=== PATIENT | male | born 1960 | race American Indian/Alaskan Native ===

== ENCOUNTER 2016-10-20 20:09 | Emergency (ER) | payer MEDICARE, OTHER ==
[2016-10-20] MEDS ORDERED: Ketorolac 30 MG/ML SDV IVPUSH ONE (20:42)
[2016-10-20] MEDS ORDERED: diphenhydrAMINE 50 MG/ML SDV IVPUSH ONE (20:42)
[2016-10-20] MEDS ORDERED: Sodium Chloride 0.9% 1,000 ML IV ONE (20:42)
[2016-10-20] MEDS ORDERED: Ondansetron 4 MG/2 ML SDV IV ONE (20:43)
--- NOTE | 2016-10-20 20:43 | EDM.PDOC ---
ED HPI GENERAL MEDICAL PROBLEM - General Chief Complaint: Fever Stated Complaint: PAIN ALL OVER THE BODY [id number] Time Seen by Provider: 10/20/16 20:25 Source of Information: Reports: Patient History Limitations: Reports: No Limitations - History of Present Illness INITIAL COMMENTS - FREE TEXT/NARRATIVE: c/o cold symptoms since weekend and thought getting better until today, increased fatigue, temp at home 102, occasional cough productive green phlegm. Generalized body aches today. Last ibuprofen 1600 today Quality: Reports: Ache Severity: Mild Generalized Pain Score (Numeric/FACES): 8 - Related Data Allergies Allergy/AdvReac Type Severity Reaction Status Date / Time codeine AdvReac Mild Nausea Verified 10/20/16 22:04 propoxyphene AdvReac Mild Nausea Verified 10/20/16 22:04 Home Meds: Home Meds Lisinopril [Lisinopril] 5 mg PO DAILY 06/17/16 [History] Past Medical History Cardiovascular History: Reports: Hypertension Respiratory History: Reports: Other (See Below) Other Respiratory History: HX OF PNEUMONIA Gastrointestinal History: Reports: Other (See Below) Other Gastrointestinal History: HX OF ELECTROLYTE IMBALANCE Musculoskeletal History: Reports: Fracture Neurological History: Reports: Other (See Below) Other Neuro History: CHRONIC PAIN SYNDROME Psychiatric History: Reports: Addiction, Other (See Below) Other Psychiatric History: HX OF ALCOHOL HABITUATION. HX OF TOBACCO HABITUATION Hematologic History: Reports: Anemia Dermatologic History: Reports: Other (See Below) Other Dermatologic History: ROSACEA, ACNE - Infectious Disease History Infectious Disease History: Reports: None Other Infectious Disease History: DOES NOT RECALL - Past Surgical History Musculoskeletal Surgical History: Reports: Other (See Below) Social & Family History - Family History Family Medical History: Noncontributory HEENT: Reports: Hearing Impairment Cardiac: Reports: CAD, Heart Failure, High Cholesterol, Hypertension Respiratory: Reports: COPD GI: Reports: Cholelithiasis Neurological: Reports: CVA Psychiatric: Reports: Depression Endocrine/Metabolic: Reports: Diabetes, type II - Tobacco Use Smoking Status *Q: Current Every Day Smoker Years of Tobacco use: 40 Packs/Tins Daily: 1 Used Tobacco, but Quit: Yes Second Hand Smoke Exposure: No - Caffeine Use Caffeine Use: Reports: Coffee, Soda - Alcohol Use Days Per Week of Alcohol Use: 7 Number of Drinks Per Day: 30 Total Drinks Per Week: 210 - Recreational Drug Use Recreational Drug Use: No Other Recreational Drug Type: UNKNOWN IF USES REC. DRUGS - Living Situation & Occupation Living situation: Reports: , with Family Occupation: Unemployed ED ROS GENERAL - Review of Systems Review Of Systems: See Below Constitutional: Reports: Fever, Malaise, Fatigue HEENT: Reports: Sinus Problem. Denies: Throat Pain Respiratory: Reports: Cough, Sputum. Denies: Shortness of Breath Cardiovascular: Reports: No Symptoms GI/Abdominal: Reports: No Symptoms Musculoskeletal: Reports: Other (genralized body aches) Skin: Reports: No Symptoms Neurological: Reports: Headache (worse turning head) ED EXAM, GENERAL - Physical Exam Exam: See Below Exam Limited By: No Limitations General Appearance: Alert, Mild Distress Eye Exam: Bilateral Eye: EOMI Ears: Normal External Exam, Normal TMs Nose: Normal Inspection Throat/Mouth: Normal Inspection, Normal Oropharynx Head: Atraumatic, Normocephalic, Sinus Tenderness (ethmoid) Neck: Normal Inspection, Full Range of Motion, Tender Lateral. No: Limited Range of Motion, Lymphadenopathy (L), Lymphadenopathy (R), Tender Midline Respiratory/Chest: No Respiratory Distress, Lungs Clear Cardiovascular: Normal Peripheral Pulses, Regular Rate, Rhythm GI/Abdominal: Normal Bowel Sounds, Soft, Non-Tender Back Exam: Normal Inspection Extremities: Normal Inspection, Normal Range of Motion Neurological: Alert, Oriented, Normal Cognition Psychiatric: Normal Affect, Normal Mood Skin Exam: Warm, Dry, Intact, Normal Color, No Rash Course - Vital Signs Last Recorded V/S: Last Vital Signs Temp 97.6 F 10/20/16 22:36 Pulse 77 10/20/16 22:36 Resp 18 10/20/16 22:36 BP 110/60 10/20/16 22:36 Pulse Ox 98 10/20/16 22:36 - Orders/Labs/Meds Orders: Active Orders 24 hr Category Date Time Status EKG 12 Lead [EKG Documentation Completion] [RC] URGENT Care 10/20/16 20:40 Active CULTURE BLOOD [BC] Stat Lab 10/20/16 20:24 Received CULTURE BLOOD [BC] Stat Lab 10/20/16 20:28 Received Blood Culture x2 Reflex Set [OM.PC] Stat Oth 10/20/16 21:01 Ordered Labs: Laboratory Tests 10/20/16 10/20/16 10/20/16 Range/Units 20:28 20:28 20:28 WBC 5.7 (5.0-10.0) 10^3/uL RBC 5.60 (4.6-6.2) 10^6/uL Hgb 16.6 (14.0-18.0) g/dL Hct 47.5 (40.0-54.0) % MCV 84.8 (80-100) fL MCH 29.6 (27.0-34.0) pg MCHC 34.9 (33.0-35.0) g/dL Plt Count 143 L (150-450) 10^3/uL Neut % (Auto) 84.3 H (42.2-75.2) % Lymph % (Auto) 10.5 L (20.5-50.1) % [place] % (Auto) 3.0 (2-8) % Eos % (Auto) 1.9 (1.0-3.0) % Baso % (Auto) 0.3 (0.0-1.0) % Sodium 134 L (135-145) mmol/L Potassium 4.3 (3.6-5.0) mmol/L Chloride 101 (101-111) mmol/L Carbon Dioxide 24.0 (21.0-31.0) mmol/L Anion Gap 13.3 BUN 11 (7-18) mg/dL Creatinine 0.8 (0.6-1.3) mg/dL Est Cr Clr Drug Dosing 111.82 mL/min Estimated GFR (MDRD) > 60 BUN/Creatinine Ratio 13.75 Glucose 118 H (74-105) mg/dL Lactic Acid 1.2 (0.5-2.2) mmol/L Calcium 8.8 (8.4-10.2) mg/dl Total Bilirubin 0.6 (0.2-1.0) mg/dL AST 26 (10-42) IU/L ALT 15 (10-60) IU/L Alkaline Phosphatase 93 (42-121) IU/L Troponin I < 0.02 (0.00-0.02) ng/ml Total Protein 7.5 (6.7-8.2) g/dl Albumin 4.1 (3.2-5.5) g/dl Globulin 3.4 Albumin/Globulin Ratio 1.21 Amylase 36 (28-100) U/L Lipase 13 L (22-51) U/L Meds: Medications Discontinued Medications Generic Name Dose Route Start Last Admin Trade Name Andra PRN Reason Stop Dose Admin Acetaminophen 650 mg 10/20/16 21:28 10/20/16 21:47 Tylenol PO 10/20/16 21:29 650 mg NOW ONE Administration Diphenhydramine HCl 25 mg 10/20/16 20:42 10/20/16 21:17 Benadryl IVPUSH 10/20/16 20:43 25 mg ONETIME ONE Administration Sodium Chloride 1,000 mls @ 999 mls/hr 10/20/16 20:42 10/20/16 21:00 Normal Saline IV 10/20/16 21:42 999 mls/hr .BOLUS ONE Administration Ketorolac Tromethamine 30 mg 10/20/16 20:42 10/20/16 21:22 Toradol IVPUSH 10/20/16 20:43 30 mg ONETIME ONE Administration Ondansetron HCl 4 mg 10/20/16 20:43 10/20/16 21:19 Zofran IV 10/20/16 20:44 4 mg ONETIME ONE Administration - Radiology Interpretation Free Text/Narrative:: CXR negative Departure - Departure Time of Disposition: 22:17 Disposition: Home, Self-Care 01 Condition: good Clinical Impression: Tension headache URI (upper respiratory infection) Qualifiers: URI type: unspecified viral URI Qualified Code(s): J06.9 - Acute upper respiratory infection, unspecified - Discharge Information Referrals: Reed Garcia [Primary Care Provider] - Forms: ED Department Discharge Additional Instructions: rest alternate tylenol and ibuprofen for discomfort robitussin or mucciex for congestion follow up as needed - My Orders Last 24 Hours: My Active Orders 10/20/16 20:24 CULTURE BLOOD [BC] Stat 10/20/16 20:28 CULTURE BLOOD [BC] Stat 10/20/16 20:40 EKG 12 Lead [EKG Documentation Completion] [RC] URGENT 10/20/16 21:01 Blood Culture x2 Reflex Set [OM.PC] Stat - Assessment/Plan Last 24 Hours: My Active Orders 10/20/16 20:24 CULTURE BLOOD [BC] Stat 10/20/16 20:28 CULTURE BLOOD [BC] Stat 10/20/16 20:40 EKG 12 Lead [EKG Documentation Completion] [RC] URGENT 10/20/16 21:01 Blood Culture x2 Reflex Set [OM.PC] Stat
[2016-10-20 21:24] LABS: CHLORIDE,CL 101 mmol/L (101-111); SODIUM,NA 134 mmol/L (135-145)
[2016-10-20] MEDS ORDERED: Acetaminophen 325 MG Tab PO ONE (21:28)
[2016-10-21 02:05] VITALS: BP 110/60
--- NOTE | 2016-10-25 11:00 | EKG ---
10/20/2016- SID CASTRO - EKG per my reading, shows sinus rhythm at a rate of [address] changes. [facility] /[id number]
== END 2016-10-20 22:51 | disposition home or self-care (01) ==
LOC: DL.ED 20:09
DX: J06.9 Acute upper respiratory infection, unspecified (principal); G44.209 Tension-type headache, unspecified, not intractable; I10 Essential (primary) hypertension; D64.9 Anemia, unspecified; F17.210 Nicotine dependence, cigarettes, uncomplicated; Z88.5 Allergy status to narcotic agent; Z88.8 Allergy status to other drugs, medicaments and biological substances
CPT/HCPCS: 36415; 71020; 80053; 82150; 83605; 83690; 84484; 85025; 87040; 87804; 93005; 99284; A9270; J1200; J1885; J2405; J7030; 93010; 96361; 96374; 96375

== ENCOUNTER 2017-01-30 21:18 | Emergency (ER) | payer OTHER ==
[2017-01-30 22:17] LABS: CHLORIDE,CL 101 mmol/L (101-111); SODIUM,NA 137 mmol/L (135-145)
--- NOTE | 2017-01-30 22:54 | EDM.PDOC ---
ED HPI GENERAL MEDICAL PROBLEM - General Chief Complaint: Respiratory Problem Stated Complaint: RIGHT SIDE LUNGS BOTHERING Time Seen by Provider: 01/30/17 21:30 Source of Information: Reports: Patient History Limitations: Reports: No Limitations - History of Present Illness INITIAL COMMENTS - FREE TEXT/NARRATIVE: c/o right mid lateral chest pain, worse with movement, radiates through to back. Notices wihen rolling over or getting out of chair. Worried if it is pneumonia, similar sx previously and recent cold sx 2 weeks ago. No nausea or sweating occasional dry cough. Right Upper Anterior Chest Pain Score (Numeric/FACES): 7 - Related Data Allergies Allergy/AdvReac Type Severity Reaction Status Date / Time codeine AdvReac Mild Nausea Verified 01/30/17 21:37 propoxyphene AdvReac Mild Nausea Verified 01/30/17 21:37 Home Meds: Home Meds Lisinopril [Lisinopril] 5 mg PO DAILY 06/17/16 [History] Past Medical History HEENT History: Reports: None Cardiovascular History: Reports: Hypertension Respiratory History: Reports: Other (See Below) Other Respiratory History: HX OF PNEUMONIA Gastrointestinal History: Reports: Other (See Below) Other Gastrointestinal History: HX OF ELECTROLYTE IMBALANCE Musculoskeletal History: Reports: Fracture Other Musculoskeletal History: bilateral elbows, bilateral ankles, Neurological History: Reports: Other (See Below) Other Neuro History: CHRONIC PAIN SYNDROME Psychiatric History: Reports: Addiction, Other (See Below) Other Psychiatric History: HX OF ALCOHOL HABITUATION. HX OF TOBACCO HABITUATION Endocrine/Metabolic History: Reports: None Hematologic History: Reports: Anemia Immunologic History: Reports: None Oncologic (Cancer) History: Reports: None Dermatologic History: Reports: Other (See Below) Other Dermatologic History: ROSACEA, ACNE - Infectious Disease History Infectious Disease History: Reports: None Other Infectious Disease History: DOES NOT RECALL - Past Surgical History Musculoskeletal Surgical History: Reports: Other (See Below) Social & Family History - Family History Family Medical History: Noncontributory HEENT: Reports: Hearing Impairment Cardiac: Reports: CAD, Heart Failure, High Cholesterol, Hypertension Respiratory: Reports: COPD GI: Reports: Cholelithiasis Neurological: Reports: CVA Psychiatric: Reports: Depression Endocrine/Metabolic: Reports: Diabetes, type II - Tobacco Use Smoking Status *Q: Current Every Day Smoker Years of Tobacco use: 40 Packs/Tins Daily: 10 Used Tobacco, but Quit: Yes Second Hand Smoke Exposure: No - Caffeine Use Caffeine Use: Reports: Coffee, Soda - Alcohol Use Days Per Week of Alcohol Use: 7 Number of Drinks Per Day: 30 Total Drinks Per Week: 210 - Recreational Drug Use Recreational Drug Use: No Other Recreational Drug Type: UNKNOWN IF USES REC. DRUGS - Living Situation & Occupation Living situation: Reports: , with Family Occupation: Unemployed ED ROS GENERAL - Review of Systems Review Of Systems: See Below Constitutional: Reports: No Symptoms HEENT: Reports: No Symptoms Respiratory: Reports: Pleuritic Chest Pain, Cough. Denies: Shortness of Breath , Wheezing, Sputum, Hemoptysis Cardiovascular: Reports: No Symptoms Endocrine: Reports: No Symptoms GI/Abdominal: Reports: No Symptoms : Reports: No Symptoms Musculoskeletal: Reports: No Symptoms Skin: Reports: No Symptoms Neurological: Reports: No Symptoms ED EXAM, GENERAL - Physical Exam Exam: See Below Exam Limited By: No Limitations General Appearance: Alert, No Apparent Distress Eye Exam: Bilateral Eye: EOMI Ears: Normal External Exam, Normal TMs Nose: Normal Inspection. No: Nasal Drainage Throat/Mouth: Normal Inspection, Normal Lips, Normal Oropharynx, No Airway Compromise Head: Atraumatic, Normocephalic Neck: Normal Inspection, Full Range of Motion. No: Lymphadenopathy (L), Lymphadenopathy (R) Respiratory/Chest: No Respiratory Distress, Lungs Clear, Decreased Breath Sounds (bilateral bases), Other (unable to reproduce pain with palpation. Notes pain in lateral chest with right arm movment) Cardiovascular: Regular Rate, Rhythm, No Edema GI/Abdominal: Normal Bowel Sounds, Soft Back Exam: Normal Inspection, Full Range of Motion Extremities: Normal Inspection Neurological: Alert, Oriented Psychiatric: Normal Mood Skin Exam: Warm, Dry, Intact Course - Vital Signs Last Recorded V/S: Last Vital Signs Temp 96.5 F 01/30/17 23:01 Pulse 70 01/30/17 23:01 Resp 17 01/30/17 23:01 BP 120/85 01/30/17 23:01 Pulse Ox 100 01/30/17 23:01 - Orders/Labs/Meds Orders: Active Orders 24 hr Category Date Time Status EKG Documentation Completion [RC] URGENT Care 01/30/17 21:39 Active Labs: Laboratory Tests 01/30/17 01/30/17 01/30/17 Range/Units 21:50 21:50 21:50 WBC 11.1 H (5.0-10.0) 10^3/uL RBC 5.32 (4.6-6.2) 10^6/uL Hgb 15.8 (14.0-18.0) g/dL Hct 46.5 (40.0-54.0) % MCV 87.4 (80-100) fL MCH 29.7 (27.0-34.0) pg MCHC 34.0 (33.0-35.0) g/dL Plt Count 268 (150-450) 10^3/uL Neut % (Auto) 56.0 (42.2-75.2) % Lymph % (Auto) 32.9 (20.5-50.1) % [place] % (Auto) 6.5 (2-8) % Eos % (Auto) 3.9 H (1.0-3.0) % Baso % (Auto) 0.7 (0.0-1.0) % D-Dimer, Quantitative (0-400) ng/mL Sodium 137 (135-145) mmol/L Potassium 4.2 (3.6-5.0) mmol/L Chloride 101 (101-111) mmol/L Carbon Dioxide 26.0 (21.0-31.0) mmol/L Anion Gap 14.2 BUN 12 (7-18) mg/dL Creatinine 1.0 (0.6-1.3) mg/dL Est Cr Clr Drug Dosing 89.46 mL/min Estimated GFR (MDRD) > 60 BUN/Creatinine Ratio 12.00 Glucose 162 H (74-105) mg/dL Lactic Acid 1.6 (0.5-2.2) mmol/L Calcium 9.4 (8.4-10.2) mg/dl Total Bilirubin 0.6 (0.2-1.0) mg/dL AST 15 (10-42) IU/L ALT 11 (10-60) IU/L Alkaline Phosphatase 92 (42-121) IU/L Troponin I < 0.02 (0.00-0.02) ng/ml Total Protein 7.9 (6.7-8.2) g/dl Albumin 4.2 (3.2-5.5) g/dl Globulin 3.7 Albumin/Globulin Ratio 1.14 01/30/17 Range/Units 21:50 WBC (5.0-10.0) 10^3/uL RBC (4.6-6.2) 10^6/uL Hgb (14.0-18.0) g/dL Hct (40.0-54.0) % MCV (80-100) fL MCH (27.0-34.0) pg MCHC (33.0-35.0) g/dL Plt Count (150-450) 10^3/uL Neut % (Auto) (42.2-75.2) % Lymph % (Auto) (20.5-50.1) % [place] % (Auto) (2-8) % Eos % (Auto) (1.0-3.0) % Baso % (Auto) (0.0-1.0) % D-Dimer, Quantitative < 100 (0-400) ng/mL Sodium (135-145) mmol/L Potassium (3.6-5.0) mmol/L Chloride (101-111) mmol/L Carbon Dioxide (21.0-31.0) mmol/L Anion Gap BUN (7-18) mg/dL Creatinine (0.6-1.3) mg/dL Est Cr Clr Drug Dosing mL/min Estimated GFR (MDRD) BUN/Creatinine Ratio Glucose (74-105) mg/dL Lactic Acid (0.5-2.2) mmol/L Calcium (8.4-10.2) mg/dl Total Bilirubin (0.2-1.0) mg/dL AST (10-42) IU/L ALT (10-60) IU/L Alkaline Phosphatase (42-121) IU/L Troponin I (0.00-0.02) ng/ml Total Protein (6.7-8.2) g/dl Albumin (3.2-5.5) g/dl Globulin Albumin/Globulin Ratio Departure - Departure Time of Disposition: 22:51 Disposition: Home, Self-Care 01 Condition: Good Clinical Impression: Chest pain, non-cardiac, Costochondritis - Discharge Information Forms: ED Department Discharge Additional Instructions: tylenol every 4 hours as needed for discomfort warm pack to area 2-3 times dailyt for 15 minutes follow up if symptoms worsen sweating, breathing difficulty or - My Orders Last 24 Hours: My Active Orders 01/30/17 21:39 EKG Documentation Completion [RC] URGENT - Assessment/Plan Last 24 Hours: My Active Orders 01/30/17 21:39 EKG Documentation Completion [RC] URGENT
[2017-01-30 23:08] VITALS: BP 120/85
--- NOTE | 2017-01-31 20:23 | EKG ---
01/30/2017 - SID CASTRO - This 12-lead EKG shows a normal sinus rhythm with a ventricular rate of 70. Normal axis and intervals. No acute ST-segment or T-wave changes. [facility] /[id number]
== END 2017-01-30 23:01 | disposition home or self-care (01) ==
LOC: DL.ED 21:18
DX: M94.0 Chondrocostal junction syndrome [Tietze] (principal); I10 Essential (primary) hypertension; F17.210 Nicotine dependence, cigarettes, uncomplicated; Z87.01 Personal history of pneumonia (recurrent); Z86.2 Personal history of diseases of the blood and blood-forming organs and certain disorders involving the immune mechanism; Z79.899 Other long term (current) drug therapy; Z88.5 Allergy status to narcotic agent; Z88.8 Allergy status to other drugs, medicaments and biological substances
CPT/HCPCS: 36415; 71020; 80053; 83605; 84484; 85025; 85379; 93005; 93010; 99283

== ENCOUNTER 2017-02-18 22:58 | Emergency (ER) | payer OTHER ==
[2017-02-18 23:19] VITALS: BP 133/76
[2017-02-18] MEDS ORDERED: Sodium Chloride 0.9% 1,000 ML IV ONE (23:28)
--- NOTE | 2017-02-18 23:36 | EDM.PDOC ---
ED HPI GENERAL MEDICAL PROBLEM - General Chief Complaint: Respiratory Problem Stated Complaint: LUNGS BOTHERING [id number] Time Seen by Provider: 02/18/17 23:31 Source of Information: Reports: Patient History Limitations: Reports: No Limitations - History of Present Illness INITIAL COMMENTS - FREE TEXT/NARRATIVE: c/o constant burning sensation in right lung past month been progressively getting worse. was here last week for same. ER records show negative trop-d dimer-cxr. went to [facility] given pred but still same and starting to feel worse and now his right arm aches. does smoke. - Related Data Allergies Allergy/AdvReac Type Severity Reaction Status Date / Time codeine AdvReac Mild Nausea Verified 02/18/17 23:20 propoxyphene AdvReac Mild Nausea Verified 02/18/17 23:20 Home Meds: Home Meds Lisinopril [Lisinopril] 5 mg PO DAILY 06/17/16 [History] Celecoxib [CeleBREX] 2 tab PO DAILY 02/18/17 [History] Gabapentin [Neurontin] 1 tab PO BID 02/18/17 [History] Omeprazole 1 cap PO DAILY 02/18/17 [History] Pregabalin [Lyrica] 1 cap PO BEDTIME 02/18/17 [History] Pregabalin [Lyrica] 1 cap PO DAILY 02/18/17 [History] Past Medical History HEENT History: Reports: None Cardiovascular History: Reports: Hypertension Respiratory History: Reports: Other (See Below) Other Respiratory History: HX OF PNEUMONIA Gastrointestinal History: Reports: Other (See Below) Other Gastrointestinal History: HX OF ELECTROLYTE IMBALANCE Musculoskeletal History: Reports: Fracture Other Musculoskeletal History: bilateral elbows, bilateral ankles, Neurological History: Reports: Other (See Below) Other Neuro History: CHRONIC PAIN SYNDROME Psychiatric History: Reports: Addiction, Other (See Below) Other Psychiatric History: HX OF ALCOHOL HABITUATION. HX OF TOBACCO HABITUATION Endocrine/Metabolic History: Reports: None Hematologic History: Reports: Anemia Immunologic History: Reports: None Oncologic (Cancer) History: Reports: None Dermatologic History: Reports: Other (See Below) Other Dermatologic History: ROSACEA, ACNE - Infectious Disease History Infectious Disease History: Reports: None Other Infectious Disease History: DOES NOT RECALL - Past Surgical History Musculoskeletal Surgical History: Reports: Other (See Below) Social & Family History - Family History Family Medical History: Noncontributory HEENT: Reports: Hearing Impairment Cardiac: Reports: CAD, Heart Failure, High Cholesterol, Hypertension Respiratory: Reports: COPD GI: Reports: Cholelithiasis Neurological: Reports: CVA Psychiatric: Reports: Depression Endocrine/Metabolic: Reports: Diabetes, type II - Tobacco Use Smoking Status *Q: Current Every Day Smoker Years of Tobacco use: 40 Packs/Tins Daily: 10 Used Tobacco, but Quit: Yes Second Hand Smoke Exposure: No - Caffeine Use Caffeine Use: Reports: Coffee, Soda - Alcohol Use Days Per Week of Alcohol Use: 7 Number of Drinks Per Day: 30 Total Drinks Per Week: 210 - Recreational Drug Use Recreational Drug Use: No Other Recreational Drug Type: UNKNOWN IF USES REC. DRUGS - Living Situation & Occupation Living situation: Reports: , with Family Occupation: Unemployed ED ROS GENERAL - Review of Systems Review Of Systems: ROS reveals no pertinent complaints other than HPI. ED EXAM, GENERAL - Physical Exam Exam: See Below Exam Limited By: No Limitations General Appearance: Alert, WD/WN, Mild Distress, Other (distraught) Ears: Hearing Grossly Normal Throat/Mouth: Normal Voice, No Airway Compromise Head: Atraumatic Neck: Non-Tender, Full Range of Motion Respiratory/Chest: No Respiratory Distress, No Accessory Muscle Use, Rhonchi. No: Decreased Breath Sounds, Retractions, Splinting Cardiovascular: Regular Rate, Rhythm GI/Abdominal: Soft, Non-Tender Neurological: Alert, Oriented, Normal Cognition, Normal Gait, No Motor/Sensory Deficits Psychiatric: Flat Affect, Other (upset) Skin Exam: Warm, Dry, Normal Color Lymphatic: No Adenopathy Course - Vital Signs Last Recorded V/S: Last Vital Signs Temp 36.4 C 02/18/17 23:15 Pulse 79 02/18/17 23:15 Resp 20 02/18/17 23:15 BP 133/76 02/18/17 23:15 Pulse Ox 100 02/18/17 23:15 - Orders/Labs/Meds Orders: Active Orders 24 hr Category Date Time Status Sodium Chloride 0.9% [Normal Saline] 1,000 ml Med 02/18/17 23:28 Active IV .BOLUS Medication Orders Sodium Chloride (Normal Saline) 1,000 mls @ 500 mls/hr IV .BOLUS ONE Stop: 02/19/17 01:27 Last Admin: 02/19/17 00:01 Dose: 500 mls/hr Labs: Laboratory Tests 02/18/17 02/18/17 02/18/17 Range/Units 23:35 23:35 23:35 WBC 12.8 H (5.0-10.0) 10^3/uL RBC 5.60 (4.6-6.2) 10^6/uL Hgb 16.6 (14.0-18.0) g/dL Hct 48.8 (40.0-54.0) % MCV 87.1 (80-100) fL MCH 29.6 (27.0-34.0) pg MCHC 34.0 (33.0-35.0) g/dL Plt Count 238 (150-450) 10^3/uL Neut % (Auto) 60.6 (42.2-75.2) % Lymph % (Auto) 28.8 (20.5-50.1) % [place] % (Auto) 6.4 (2-8) % Eos % (Auto) 3.7 H (1.0-3.0) % Baso % (Auto) 0.5 (0.0-1.0) % D-Dimer, Quantitative < 100 (0-400) ng/mL Sodium 139 (135-145) mmol/L Potassium 4.3 (3.6-5.0) mmol/L Chloride 102 (101-111) mmol/L Carbon Dioxide 25.0 (21.0-31.0) mmol/L Anion Gap 16.3 BUN 16 (7-18) mg/dL Creatinine 0.9 (0.6-1.3) mg/dL Est Cr Clr Drug Dosing TNP Estimated GFR (MDRD) > 60 BUN/Creatinine Ratio 17.77 Glucose 188 H (74-105) mg/dL Calcium 9.4 (8.4-10.2) mg/dl Total Bilirubin 0.6 (0.2-1.0) mg/dL AST 15 (10-42) IU/L ALT 12 (10-60) IU/L Alkaline Phosphatase 97 (42-121) IU/L Troponin I < 0.02 (0.00-0.02) ng/ml B-Natriuretic Peptide 6 (0-100) pg/ml Total Protein 8.2 (6.7-8.2) g/dl Albumin 4.4 (3.2-5.5) g/dl Globulin 3.8 Albumin/Globulin Ratio 1.16 Meds: Medications Generic Name Dose Route Start Last Admin Trade Name Freq PRN Reason Stop Dose Admin Sodium Chloride 1,000 mls @ 500 mls/hr 02/18/17 23:28 02/19/17 00:01 Normal Saline IV 02/19/17 01:27 500 mls/hr .BOLUS ONE Administration Discontinued Medications Generic Name Dose Route Start Last Admin Trade Name Freq PRN Reason Stop Dose Admin Iopamidol 100 ml 02/18/17 23:37 02/18/17 23:42 Isovue-370 (76%) IVPUSH 02/18/17 23:38 100 ml ONETIME ONE Administration - Re-Assessments/Exams Free Text/Narrative Re-Assessment/Exam: 02/19/17 00:59 results discussed with pt & spouse. Departure - Departure Time of Disposition: 00:59 Disposition: Home, Self-Care 01 Condition: Good Clinical Impression: Hiatal hernia with GERD and esophagitis - Discharge Information Instructions: Hiatal Hernia Forms: ED Department Discharge Additional Instructions: 1) follow up with family doctor or clinic for GASTROENTEROLOGY REFERRAL FOR HIATAL HERNIA 2) avoid spicy foods 3) avoid sleeping flat 4) avoid lying down after eating. wait at least 3 hours before lying down 5) recheck if there is any change or concern - My Orders Last 24 Hours: My Active Orders 02/18/17 23:28 Sodium Chloride 0.9% [Normal Saline] 1,000 ml IV .BOLUS - Assessment/Plan Last 24 Hours: My Active Orders 02/18/17 23:28 Sodium Chloride 0.9% [Normal Saline] 1,000 ml IV .BOLUS
[2017-02-18] MEDS ORDERED: Iopamidol 755 Mg/ML 100 ML Bottle IVPUSH ONE (23:37)
[2017-02-19 00:01] LABS: CHLORIDE,CL 102 mmol/L (101-111); SODIUM,NA 139 mmol/L (135-145)
== END 2017-02-19 01:12 | disposition home or self-care (01) ==
LOC: DL.ED 22:58
DX: K44.9 Diaphragmatic hernia without obstruction or gangrene (principal); K21.0 Gastro-esophageal reflux disease with esophagitis; I10 Essential (primary) hypertension; F17.210 Nicotine dependence, cigarettes, uncomplicated; Z86.2 Personal history of diseases of the blood and blood-forming organs and certain disorders involving the immune mechanism; Z79.899 Other long term (current) drug therapy; Z88.5 Allergy status to narcotic agent; Z88.8 Allergy status to other drugs, medicaments and biological substances; Z87.01 Personal history of pneumonia (recurrent)
CPT/HCPCS: 36415; 71260; 80053; 83880; 84484; 85025; 85379; 96360; 99284; J7030; Q9967; 99283

== ENCOUNTER 2017-03-28 05:35 | Day surgery (SDC) | payer OTHER ==
[2017-03-28] MEDS ORDERED: Midazolam 1 MG/ML 2 ML SDV IV ONE ×3 (05:36→06:29)
[2017-03-28] MEDS ORDERED: fentaNYL 100 MCG/2 ML SDV IV ONE ×3 (05:36→06:27)
[2017-03-28] MEDS ORDERED: Sodium Chloride 0.9% 10 ML Syringe FLUSH PRN (06:00)
[2017-03-28] MEDS ORDERED: Dextrose 5%-0.45% NaCl 1,000 ML IV SCH (06:00)
[2017-03-28] MEDS ORDERED: Midazolam 1 MG/ML 2 ML SDV ONE (06:14)
[2017-03-28] MEDS ORDERED: fentaNYL 100 MCG/2 ML SDV ONE (06:14)
[2017-03-28 08:38] VITALS: BP 129/76
--- NOTE | 2017-03-28 10:17 | OR ---
DATE: 03/28/2017 PROCEDURE: Esophagogastroduodenoscopy and multiple pinch biopsies. INSTRUMENT USED: [id number] Olympus video panendoscope. PREMEDICATIONS: No oral topical anesthesia used. Fentanyl 100 mcg intravenous, Versed 2 mg intravenous. The procedure was done under pulse oximetry, BP recording, and monitoring and evaluation advisor. INDICATION: The patient with persistent chest pain and dyspepsia, unexplained, and not responsive to medical measures, on long-term PPI. Recent CT suggestive of abnormal esophageal wall. Esophagogastroduodenoscopy is performed for detection of any active erosive lesions, Gonzales esophagus and/or malignancy also under consideration, H. pylori status to be determined. Endoscopic hemostasis therapy if needed. DESCRIPTION OF PROCEDURE: The scope was passed with ease. Adequate visualization of the esophagus was made from proximal to distal areas. No upper esophageal lesions identified. No distal esophageal stricture. No uphill or downhill esophageal varices. No Cary-Gómez tear. Grade A erosive changes were noted by Tripp criteria. No esophageal polyp or tumor mass identified. Sliding hiatal hernia was noted. No proximal gastric varices noted. Gastric fundus examination by retroflexion showed no polypoid lesions. No gastric ulcer, malignant mass, or vascular ectasia identified. Duodenal bulb showed no ulcer. Visualized second part of the duodenum was unremarkable. Multiple pinch biopsies were taken from the gastric antrum and proximal body and sent for PyloriTek test for H. pylori, and if negative in an hour, tissue is to be sent for histopathology. No bleeding was noted from any of the visualized areas at the completion of the examination. Photographs were taken of the duodenal bulb, gastric antrum, fundus, and distal esophagus. IMPRESSION: 1. Grade A gastroesophageal reflux disease. 2. Sliding hiatal hernia. The patient tolerated the procedure well. [facility] /[id number]
--- NOTE | 2017-03-28 12:46 | LETTER ---
03/28/2017 Gayatri Dillon MD [facility] [address] [place] [address] RE: SID WATTS : [address] Dillon: Mr. Sid Watts had esophagogastroduodenoscopy done this morning and he tolerated the procedure well. I herewith send a copy of the endoscopy note and photographs for your review. He has been recommended to increase omeprazole to 20 mg p.o. b.i.d., response to be noted. Thank you. Sincerely, [facility] /[id number]
== END 2017-03-28 08:40 | disposition home or self-care (01) ==
LOC: DL.ENDO 05:35
PROVIDERS: ATTEND Internal Medicine Gastroenterology
DX: K21.9 Gastro-esophageal reflux disease without esophagitis (principal); B96.81 Helicobacter pylori [H. pylori] as the cause of diseases classified elsewhere; K44.9 Diaphragmatic hernia without obstruction or gangrene; G89.4 Chronic pain syndrome; Z87.891 Personal history of nicotine dependence; Z87.01 Personal history of pneumonia (recurrent)
CPT/HCPCS: 43239; J2250; J3010; J7042

== ENCOUNTER 2018-07-23 23:45 | Emergency (ER) | payer BC, OTHER ==
[2018-07-23] MEDS ORDERED: Acetaminophen/oxyCODONE 325-5 MG Tab PO ONE (23:46)
[2018-07-24 00:03] VITALS: BP 137/83
--- NOTE | 2018-07-24 00:46 | EDM.PDOC ---
ED HPI GENERAL MEDICAL PROBLEM - General Chief Complaint: Lower Extremity Injury/Pain Stated Complaint: SLIPPED AND FELL, HURT KNEE Time Seen by Provider: 07/24/18 01:06 Source of Information: Reports: Patient History Limitations: Reports: No Limitations - History of Present Illness INITIAL COMMENTS - FREE TEXT/NARRATIVE: ED per w/c with c/o pain to left knee, states slpped on ice [place] of [place] app[place]ximately 2230 tonight, landed on left knee pain medial kneess anterior and down to ankle. Left Leg Pain Score (Numeric/FACES): 10 - Related Data Allergies Allergy/AdvReac Type Severity Reaction Status Date / Time codeine AdvReac Mild Nausea Verified 07/24/18 00:03 propoxyphene AdvReac Mild Nausea Verified 07/24/18 00:03 Home Meds: Home Meds Lisinopril 5 mg PO DAILY 03/29/17 [History] Past Medical History HEENT History: Reports: None Cardiovascular History: Reports: Hypertension Respiratory History: Reports: Other (See Below) Other Respiratory History: HX OF PNEUMONIA Gastrointestinal History: Reports: Hiatal Hernia, Other (See Below) Other Gastrointestinal History: HX OF ELECTROLYTE IMBALANCE Genitourinary History: Reports: None Musculoskeletal History: Reports: Arthritis, Back Pain, Chronic, Fracture Other Musculoskeletal History: bilateral elbows, bilateral ankles, Neurological History: Reports: Other (See Below) Other Neuro History: CHRONIC PAIN SYNDROME Psychiatric History: Reports: Addiction, Other (See Below) Other Psychiatric History: HX OF ALCOHOL HABITUATION. HX OF TOBACCO HABITUATION Endocrine/Metabolic History: Reports: None Hematologic History: Reports: Anemia Immunologic History: Reports: None Oncologic (Cancer) History: Reports: None Dermatologic History: Reports: Other (See Below) Other Dermatologic History: ROSACEA, ACNE - Infectious Disease History Infectious Disease History: Reports: None Other Infectious Disease History: DOES NOT RECALL - Past Surgical History Head Surgeries/Procedures: Reports: None Respiratory Surgical History: Reports: None GI Surgical History: Reports: Colonoscopy Male Surgical History: Reports: None Endocrine Surgical History: Reports: None Neurological Surgical History: Reports: None Musculoskeletal Surgical History: Reports: Other (See Below) Other Musculoskeletal Surgeries/Procedures:: right elbow and left ankle fx repair Oncologic Surgical History: Reports: None Social & Family History - Family History Family Medical History: Noncontributory HEENT: Reports: Hearing Impairment Cardiac: Reports: CAD, Heart Failure, High Cholesterol, Hypertension Respiratory: Reports: COPD GI: Reports: Cholelithiasis Neurological: Reports: CVA Psychiatric: Reports: Depression Endocrine/Metabolic: Reports: Diabetes, type II - Tobacco Use Smoking Status *Q: Current Every Day Smoker Years of Tobacco use: 30 Packs/Tins Daily: 0.6 Second Hand Smoke Exposure: Yes - Caffeine Use Caffeine Use: Reports: Coffee, Soda - Recreational Drug Use Recreational Drug Use: No - Living Situation & Occupation Living situation: Reports: , with Family Occupation: Unemployed Review of Systems - Review of Systems Review Of Systems: ROS reveals no pertinent complaints other than HPI. ED EXAM, GENERAL - Physical Exam Exam: See Below Exam Limited By: No Limitations General Appearance: Alert, Mild Distress Eye Exam: Bilateral Eye: EOMI Ears: Normal External Exam, Normal TMs Nose: Normal Inspection Throat/Mouth: Normal Gums Head: Atraumatic, Normocephalic Respiratory/Chest: No Respiratory Distress, Lungs Clear Cardiovascular: Normal Peripheral Pulses, Regular Rate, Rhythm GI/Abdominal: Normal Bowel Sounds, Soft Back Exam: Normal Inspection, Full Range of Motion Extremities: Normal Inspection, Leg Pain (left knee upper smith grossswelling, dime size superficial abrasion.), Limited Range of Motion (left knee). No: Normal Range of Motion Neurological: Alert, Oriented, Normal Cognition Psychiatric: Normal Affect, Normal Mood Skin Exam: Warm, Dry, Intact, Normal Color Course - Vital Signs Last Recorded V/S: Last Vital Signs Temp 97.4 F 07/23/18 23:59 Pulse 87 07/23/18 23:59 Resp 18 07/23/18 23:59 BP 137/83 07/23/18 23:59 Pulse Ox 99 07/23/18 23:59 - Orders/Labs/Meds Orders: Active Orders 24 hr Category Date Time Status Ankle Min 3V Lt [CR] Urgent Exams 07/24/18 00:13 Taken Knee 3V Lt [CR] Urgent Exams 07/24/18 00:13 Taken Tibia Fibula Lt [CR] Urgent Exams 07/24/18 00:13 Taken Meds: Medications Discontinued Medications Generic Name Dose Route Start Last Admin Trade Name Freq PRN Reason Stop Dose Admin Oxycodone/Acetaminophen Confirm 07/24/18 01:47 07/24/18 01:59 Percocet 325-5 Mg Administered 07/24/18 01:48 Not Given Dose 2 tab .[address] .[facility] ONE - Radiology Interpretation Free Text/Narrative:: Name: SID CASTRO Age: 58Years M Date: 07/24/2018 SSN: -- : 1960 Study: XR KNEE 3 VIEWS Requesting Physician: NOÉ WINTER Images: 3 Addl Studies: Provided Clinical History: Contrast: Contrast Medium: Contrast Amount: Contrast Method: CONFIDENTIALITY STATEMENT This report is intended only for use by the referring physician, and only in accordance with law. If you received this in error, call [phone]. Page 1 of 1 EXAM: XR Left Knee, 3 Views EXAM DATE/TIME: 07/24/2018 12:26 AM CLINICAL HISTORY: 58 years old, male; Injury or trauma; Fall; Initial encounter; Blunt trauma; Knee and lower leg; Left TECHNIQUE: XR Left knee 3 views. COMPARISON: CR Tibia Fibula Lt 07/24/2018 12:23 AM FINDINGS: Bones/joints: Avulsion fracture of the tibial tubercle which appears acute Soft tissues: Normal. IMPRESSION: Nondisplaced avulsion fracture tibial tubercle Thank you for allowing us to participate in the care of your patient. Dictated and Authenticated by: Braxton Ramos MD Name: SID CASTRO Age: 58Years M Date: 07/24/2018 SSN: -- : 1960 Study: XR TIBIA & FIBULA Requesting Physician: NOÉ WINTER Images: 2 Addl Studies: Provided Clinical History: Contrast: Contrast Medium: Contrast Amount: Contrast Method: CONFIDENTIALITY STATEMENT This report is intended only for use by the referring physician, and only in accordance with law. If you received this in error, call [phone]. Page 1 of 1 EXAM: XR Left Tibia and Fibula, 2 Views EXAM DATE/TIME: 07/24/2018 12:23 AM CLINICAL HISTORY: 58 years old, male; Injury or trauma; Fall; Initial encounter; Blunt trauma; Knee and lower leg and ankle; Left TECHNIQUE: XR Left tibia and fibula 2 views COMPARISON: No relevant prior studies available. FINDINGS: Bones/joints: Acute appearing nondisplaced fracture of the tibial tubercle Status post internal fixation of a distal fibular and tibial fracture Soft tissues: Normal. IMPRESSION: Acute appearing nondisplaced fracture of the tibial tubercle Thank you for allowing us to participate in the care of your patient. Dictated and Authenticated by: Braxton Ramos MD 07/24/2018 12:39 AM Central Time ([place] & [place]) Name: SID CASTRO Age: 58Years M Date: 07/24/2018 SSN: -- : 1960 Study: XR ANKLE COMPLETE MIN 3 VIEWS Requesting Physician: NOÉ WINTER Images: 3 Addl Studies: Provided Clinical History: Contrast: Contrast Medium: Contrast Amount: Contrast Method: CONFIDENTIALITY STATEMENT This report is intended only for use by the referring physician, and only in accordance with law. If you received this in error, call [phone]. Page 1 of 1 EXAM: XR Left Ankle Complete, 3 or more Views EXAM DATE/TIME: 07/24/2018 12:19 AM CLINICAL HISTORY: 58 years old, male; Injury or trauma; Fall; Initial encounter; Blunt trauma; Knee and lower leg and ankle; Left TECHNIQUE: XR Left ankle 3 or more views. COMPARISON: No relevant prior studies available. FINDINGS: Bones/joints: Status post internal fixation of the trimalleolar fracture with anatomic alignment No acute fracture identified Soft tissues: Normal. IMPRESSION: 1. Status post internal fixation of the trimalleolar fracture with anatomic alignment 2. No acute fracture identified Thank you for allowing us to participate in the care of your patient. Dictated and Authenticated by: Braxton Ramos MD 07/24/2018 12:39 AM Central Time ([place] & [place]) - Re-Assessments/Exams Free Text/Narrative Re-Assessment/Exam: 07/24/18 01:18 Dr Paolo Mcfarland. 07/24/18 01:24 Departure - Departure Time of Disposition: 01:55 Disposition: Home, Self-Care 01 Condition: Good Clinical Impression: Avulsion fracture of tibial tuberosity Fall Qualifiers: Encounter type: initial encounter Qualified Code(s): W19.XXXA - Unspecified fall, initial encounter - Discharge Information *PRESCRIPTION DRUG MONITORING PROGRAM REVIEWED*: Not Applicable *COPY OF PRESCRIPTION DRUG MONITORING REPORT IN PATIENT VENTURA: Not Applicable Instructions: Crutch Use, Adult, [id number], Tibial Fracture, Adult, Easy-to- Read Referrals: Gayatri Dillon MD [Primary Care Provider] - Forms: ED Department Discharge Additional Instructions: percocet 5/325 one every 6 hours as needed for pain knee immobilizer crutches non0 weight bearing follow up ortho clinic in am [phone] ice pack to knee percocet 5/325 one every 6 hours as needed for severe pain ibuprofen 600mg every 6 hours as needed for moderate pain, - My Orders Last 24 Hours: My Active Orders 07/24/18 00:13 Ankle Min 3V Lt [CR] Urgent Knee 3V Lt [CR] Urgent Tibia Fibula Lt [CR] Urgent - Assessment/Plan Last 24 Hours: My Active Orders 07/24/18 00:13 Ankle Min 3V Lt [CR] Urgent Knee 3V Lt [CR] Urgent Tibia Fibula Lt [CR] Urgent
[2018-07-24] MEDS ORDERED: Acetaminophen/oxyCODONE 325-5 MG Tab ONE (01:47)
== END 2018-07-24 01:55 | disposition home or self-care (01) ==
LOC: DL.ED 23:45
DX: S82.155A Nondisplaced fracture of left tibial tuberosity, initial encounter for closed fracture (principal); I10 Essential (primary) hypertension; F17.210 Nicotine dependence, cigarettes, uncomplicated; W00.0XXA Fall on same level due to ice and snow, initial encounter; Z88.8 Allergy status to other drugs, medicaments and biological substances; Z88.5 Allergy status to narcotic agent; Z79.899 Other long term (current) drug therapy
CPT/HCPCS: 73562-LT; 73590-LT; 73610-LT; 99283; A9270-GY

== ENCOUNTER 2019-01-24 19:21 | Emergency (ER) | payer BC, OTHER ==
[2019-01-24 19:32] VITALS: BP 153/74
[2019-01-24 20:29] LABS: ANION GAP 11.9; CHLORIDE,CL 99 mmol/L (101-111); SODIUM,NA 133 mmol/L (135-145)
--- NOTE | 2019-01-24 21:14 | EDM.PDOC ---
ED HPI GENERAL MEDICAL PROBLEM - General Chief Complaint: Chest Pain Stated Complaint: RT LUNG IS HURTING Time Seen by Provider: 01/24/19 20:00 Source of Information: Reports: Patient History Limitations: Reports: No Limitations - History of Present Illness INITIAL COMMENTS - FREE TEXT/NARRATIVE: R anterior chest pain, "feels like lung is hurting, back skin feels burning, around shoulder blade, No fever chill, no cough, smoker 1 ppd, No SOB, Movement does not change pain, hurts to touch back area. No change with activity, pain worse when lying on back/ No rash noted Right Upper Chest Pain Score (Numeric/FACES): 8 - Related Data Allergies Allergy/AdvReac Type Severity Reaction Status Date / Time codeine AdvReac Mild Nausea Verified 01/24/19 19:34 propoxyphene AdvReac Mild Nausea Verified 01/24/19 19:34 Home Meds: Home Meds Lisinopril 5 mg PO DAILY 03/29/17 [History] Diclofenac Sodium [Voltaren] 100 gm TP ASDIRECTED 01/24/19 [History] Tamsulosin HCl [Flomax] 0.4 mg PO DAILY 01/24/19 [History] Past Medical History HEENT History: Reports: None Cardiovascular History: Reports: Hypertension Respiratory History: Reports: Other (See Below) Other Respiratory History: HX OF PNEUMONIA Gastrointestinal History: Reports: Hiatal Hernia, Other (See Below) Other Gastrointestinal History: HX OF ELECTROLYTE IMBALANCE Genitourinary History: Reports: None Musculoskeletal History: Reports: Arthritis, Back Pain, Chronic, Fracture Other Musculoskeletal History: bilateral elbows, bilateral ankles, Neurological History: Reports: Other (See Below) Other Neuro History: CHRONIC PAIN SYNDROME Psychiatric History: Reports: Addiction, Other (See Below) Other Psychiatric History: HX OF ALCOHOL HABITUATION. HX OF TOBACCO HABITUATION Endocrine/Metabolic History: Reports: None Hematologic History: Reports: Anemia Immunologic History: Reports: None Oncologic (Cancer) History: Reports: None Dermatologic History: Reports: Other (See Below) Other Dermatologic History: ROSACEA, ACNE - Infectious Disease History Infectious Disease History: Reports: None Other Infectious Disease History: DOES NOT RECALL - Past Surgical History Head Surgeries/Procedures: Reports: None Respiratory Surgical History: Reports: None GI Surgical History: Reports: Colonoscopy Male Surgical History: Reports: None Endocrine Surgical History: Reports: None Neurological Surgical History: Reports: None Musculoskeletal Surgical History: Reports: Other (See Below) Other Musculoskeletal Surgeries/Procedures:: right elbow and left ankle fx repair Oncologic Surgical History: Reports: None Social & Family History - Family History Family Medical History: Noncontributory HEENT: Reports: Hearing Impairment Cardiac: Reports: CAD, Heart Failure, High Cholesterol, Hypertension Respiratory: Reports: COPD GI: Reports: Cholelithiasis Neurological: Reports: CVA Psychiatric: Reports: Depression Endocrine/Metabolic: Reports: Diabetes, type II - Tobacco Use Smoking Status *Q: Heavy Tobacco Smoker Years of Tobacco use: 30 Packs/Tins Daily: 0.5 - Caffeine Use Caffeine Use: Reports: Coffee, Soda - Recreational Drug Use Recreational Drug Use: No - Living Situation & Occupation Living situation: Reports: , with Family Occupation: Unemployed ED ROS GENERAL - Review of Systems Review Of Systems: ROS reveals no pertinent complaints other than HPI. ED EXAM, GENERAL - Physical Exam Exam: See Below Exam Limited By: No Limitations General Appearance: Alert, No Apparent Distress Eye Exam: Bilateral Eye: EOMI Ears: Normal External Exam, Hearing Grossly Normal Nose: Normal Inspection Throat/Mouth: Normal Inspection Head: Atraumatic, Normocephalic Neck: Normal Inspection, Thyromegaly Respiratory/Chest: No Respiratory Distress, Lungs Clear, Normal Breath Sounds Cardiovascular: Normal Peripheral Pulses, Regular Rate, Rhythm, No Edema GI/Abdominal: Normal Bowel Sounds, Soft Back Exam: Vertebral Tenderness Neurological: Alert, Oriented, Normal Cognition, Normal Gait, Normal Reflexes Psychiatric: Normal Affect, Normal Mood Skin Exam: Warm, Dry, Intact, Other (pain with palpation of skin to upper right scapular area, radiating below right axilla and right anterior chest. ) Course - Vital Signs Last Recorded V/S: Last Vital Signs Temp 97.7 F 01/24/19 19:28 Pulse 90 01/24/19 19:28 Resp 18 01/24/19 19:28 BP 153/74 H 01/24/19 19:28 Pulse Ox 100 01/24/19 19:28 - Orders/Labs/Meds Labs: Laboratory Tests 01/24/19 01/24/19 01/24/19 Range/Units 20:01 20:01 20:01 WBC 9.0 (5.0-10.0) 10^3/uL RBC 4.92 (4.6-6.2) 10^6/uL Hgb 15.6 (14.0-18.0) g/dL Hct 45.4 (40.0-54.0) % MCV 92.3 D (80-100) fL MCH 31.7 (27.0-34.0) pg MCHC 34.4 (33.0-35.0) g/dL Plt Count 267 (150-450) 10^3/uL Neut % (Auto) 63.4 (42.2-75.2) % Lymph % (Auto) 24.8 (20.5-50.1) % [place] % (Auto) 7.8 (2-8) % Eos % (Auto) 3.3 H (1.0-3.0) % Baso % (Auto) 0.7 (0.0-1.0) % D-Dimer, Quantitative < 100 (0-400) ng/mL Sodium 133 L (135-145) mmol/L Potassium 3.9 (3.6-5.0) mmol/L Chloride 99 L (101-111) mmol/L Carbon Dioxide 26.0 (21.0-31.0) mmol/L Anion Gap 11.9 BUN 10 (7-18) mg/dL Creatinine 1.0 (0.6-1.3) mg/dL Est Cr Clr Drug Dosing TNP Estimated GFR (MDRD) > 60 BUN/Creatinine Ratio 10.00 Glucose 110 H (74-105) mg/dL Calcium 8.9 (8.4-10.2) mg/dl Total Bilirubin 0.8 (0.2-1.0) mg/dL AST 26 (10-42) IU/L ALT 21 (10-60) IU/L Alkaline Phosphatase 73 (42-121) IU/L Troponin I < 0.02 (0.00-0.02) ng/ml Total Protein 7.3 (6.7-8.2) g/dl Albumin 3.9 (3.2-5.5) g/dl Globulin 3.4 Albumin/Globulin Ratio 1.15 - Re-Assessments/Exams Free Text/Narrative Re-Assessment/Exam: Has not had shingle vaccine, no Known exposure. Departure - Departure Time of Disposition: 21:10 Disposition: Home, Self-Care 01 Condition: Good Clinical Impression: Atypical chest pain, Irritation symptom of skin - Discharge Information *PRESCRIPTION DRUG MONITORING PROGRAM REVIEWED*: No *COPY OF PRESCRIPTION DRUG MONITORING REPORT IN PATIENT VENTURA: No Instructions: Shingles, [id number] Referrals: PCP,None [Ordering Only Provider] - Forms: ED Department Discharge Additional Instructions: follow up if symptoms worsen, difficulty breathing, fever chills. if redness rash increases on right back start acyclovir 800mg one 5 times daily alternate tylenol 650mg and ibuprofen 600mg every 4 hours as needed for discomfort limit exposure to other with poor immune systems if rash develops or infants or persons
== END 2019-01-24 21:17 | disposition home or self-care (01) ==
LOC: DL.ED 19:21
DX: R07.89 Other chest pain (principal); L98.8 Other specified disorders of the skin and subcutaneous tissue; I10 Essential (primary) hypertension; M19.90 Unspecified osteoarthritis, unspecified site; Z86.2 Personal history of diseases of the blood and blood-forming organs and certain disorders involving the immune mechanism; F17.210 Nicotine dependence, cigarettes, uncomplicated; Z88.5 Allergy status to narcotic agent; Z88.8 Allergy status to other drugs, medicaments and biological substances; Z79.899 Other long term (current) drug therapy
CPT/HCPCS: 36415; 71046; 80053; 84484; 85025; 85379; 93005; 99285-25

== ENCOUNTER 2021-01-31 19:28 | Emergency (ER) | payer BC, OTHER ==
[2021-01-31 20:47] VITALS: BP 148/88; PULSE 79
== END 2021-02-01 00:30 | disposition left against medical advice (07) ==
LOC: DL.ED 19:28
DX: Z53.21 Procedure and treatment not carried out due to patient leaving prior to being seen by health care provider (principal)
CPT/HCPCS: 81001

== ENCOUNTER 2021-09-18 23:33 | Observation (INO) | payer BC, OTHER ==
[2021-09-19] MEDS ORDERED: Sodium Chloride 0.9% 10 ML Syringe FLUSH PRN (00:13)
[2021-09-19] MEDS ORDERED: Ondansetron 4 MG Tab.DIS PO ONE (00:15)
[2021-09-19] MEDS ORDERED: Lactated Ringers 1,000 ML IV SCH (00:45)
[2021-09-19 00:59] LABS: ANION GAP 16.8 mEq/L (7-13); CHLORIDE,CL 96 mmol/L (98-107); SODIUM,NA 131 mmol/L (136-145)
[2021-09-19 02:24] LABS: AMPHETAMINES,URINE NEGATIVE (NEGATIVE); BARBITURATES,URINE NEGATIVE (NEGATIVE); BENZODIAZEPINE,URINE NEGATIVE (NEGATIVE); MDMA (ECSTASY), URINE NEGATIVE (NEGATIVE); METHADONE,URINE NEGATIVE (NEGATIVE); METHAMPHETAMINES,URINE NEGATIVE (NEGATIVE); OPIATES,URINE NEGATIVE (NEGATIVE); OXYCODONE,URINE NEGATIVE (NEGATIVE); PHENCYCLIDINE,URINE NEGATIVE (NEGATIVE); TCA,URINE NEGATIVE (NEGATIVE)
[2021-09-19 02:36] LABS: CORONAVIRUS COVID-19 NAA NEGATIVE (NEGATIVE)
[2021-09-19] MEDS ORDERED: Polyethylene Glycol 3350 Powder 17 GM Packet PO PRN (08:09)
[2021-09-19] MEDS ORDERED: Magnesium Hydroxide 400 MG/5 ML Susp 30 ML Cup PO PRN (08:09)
[2021-09-19] MEDS ORDERED: Bisacodyl 5 MG Tab PO PRN (08:09)
[2021-09-19] MEDS ORDERED: Albuterol/Ipratropium 3.0-0.5 MG/3 ML Neb Soln NEB PRN (08:09)
[2021-09-19] MEDS ORDERED: Ondansetron 4 MG Tab.DIS PO PRN (08:09)
[2021-09-19] MEDS ORDERED: Ibuprofen 600 MG Tab PO PRN (08:09)
[2021-09-19] MEDS ORDERED: cloNIDine 0.1 MG Tab PO PRN (08:12)
[2021-09-19] MEDS ORDERED: Haloperidol Lactate 5 MG/ML SDV IM PRN (08:12)
[2021-09-19] MEDS ORDERED: MVI, Adult with Vitamin K 10 ML, Folic Acid 1 MG, Thiamine 100 MG in Lactated Ringers 1... IV ONE ×4 (08:13)
[2021-09-19] MEDS ORDERED: diphenhydrAMINE 50 MG/ML SDV IVPUSH PRN (08:15)
[2021-09-19] MEDS ORDERED: QUEtiapine 25 MG Tab PO SCH (09:00)
[2021-09-19] MEDS ORDERED: Nicotine 21 MG/24 Hr Patch TRDERM PRN (09:00)
[2021-09-19] MEDS: Pantoprazole 40 MG Vial IVPUSH SCH ×2 (09:34→22:05)
[2021-09-19] MEDS: Topiramate 25 MG Tab PO SCH (22:04)
[2021-09-19] MEDS: QUEtiapine 25 MG Tab PO SCH (22:04)
[2021-09-20] MEDS ORDERED: Pantoprazole 40 MG Vial IVPUSH SCH (06:00)
[2021-09-20 06:19] LABS: ANION GAP 8.9 mEq/L (7-13); CHLORIDE,CL 99 mmol/L (98-107); SODIUM,NA 130 mmol/L (136-145)
[2021-09-20] MEDS ORDERED: Folic Acid 1 MG Tab PO SCH (09:00)
[2021-09-20] MEDS ORDERED: Thiamine 100 MG Tab PO SCH (09:00)
[2021-09-20] MEDS: Pantoprazole 40 MG Vial IVPUSH SCH (09:52)
[2021-09-20] MEDS: QUEtiapine 25 MG Tab PO SCH (09:52)
[2021-09-20] MEDS: Topiramate 25 MG Tab PO SCH (09:52)
[2021-09-20 12:44] VITALS: BP 138/78; PULSE 78
[2021-09-20] MEDS ORDERED: Sodium Chloride 0.9% 10 ML Syringe FLUSH PRN (12:45)
== END 2021-09-20 13:45 | disposition home or self-care (01) ==
LOC: DL.ED 23:33 → DL.MS 09-19 05:20
PROVIDERS: ADMIT Internal Medicine; ATTEND Internal Medicine
DX: R55 Syncope and collapse (principal); F10.129 Alcohol abuse with intoxication, unspecified; I10 Essential (primary) hypertension; G62.9 Polyneuropathy, unspecified; G47.30 Sleep apnea, unspecified; F17.210 Nicotine dependence, cigarettes, uncomplicated; R51.9 Headache, unspecified; E87.1 Hypo-osmolality and hyponatremia; E87.8 Other disorders of electrolyte and fluid balance, not elsewhere classified; Z88.5 Allergy status to narcotic agent; Z88.8 Allergy status to other drugs, medicaments and biological substances; Z20.822 Contact with and (suspected) exposure to COVID-19; Y90.8 Blood alcohol level of 240 mg/100 ml or more
CPT/HCPCS: 0240U; 36415; 70450; 70551; 71045; 72125; 80053; 80305-QW; 80307; 81001; 82140; 82550; 83605; 83735; 84100; 84484; 85025; 85610; 85651; 86140; 93005; 93880; 96365; 96375; 96376; 99222; 99238; 99285-25; A9270-GY; C9113; G0378; J3411; J3490; J7120

== ENCOUNTER 2022-12-03 23:34 | Emergency (ER) | payer BC, OTHER ==
[2022-12-03 23:55] LABS: BASOPHILS PERCENT AUTO 1.2 % (0.0-1.0); EOSINOPHILS PERCENT AUTO 5.5 % (1.0-3.0); HEMATOCRIT 38.9 % (40.0-54.0); HEMOGLOBIN 14.1 g/dL (14.0-18.0); LYMPHOCYTES PERCENT AUTO 42.6 % (20.5-50.1); MEAN CORPUSCULAR HGB CONC 36.2 g/dL (33.0-35.0); MEAN CORPUSCULAR VOLUME 88.4 fL (80-100); MONOCYTES PERCENT AUTO 7.7 % (2-8); PLATELET COUNT,PLT 164 10^3/uL (150-450); WHITE BLOOD CELL COUNT,WBC 6.5 10^3/uL (5.0-10.0)
[2022-12-04 00:15] LABS: A/G RATIO 0.9; ALANINE AMINOTRANSFERASE,ALT 137 U/L (16-63); ALBUMIN 3.6 g/dL (3.4-5.0); ALKALINE PHOSPHATASE 118 U/L (46-116); ASPARTATE AMNIOTRANSFERASE,AST 136 U/L (15-37); BILIRUBIN TOTAL 0.3 mg/dL (0.2-1.0); BLOOD UREA NITROGEN,BUN 6 mg/dL (7-18); BUN/CREATININE RATIO 8.7 (No establ ref range); CARBON DIOXIDE,CO2 23 mmol/L (21-32); CHLORIDE,CL 90 mmol/L (98-107); CREATININE 0.69 mg/dL (0.70-1.30); GLUCOSE RANDOM 91 mg/dL (70-99); PROTEIN TOTAL,TP 7.5 g/dL (6.4-8.2); SODIUM,NA 124 mmol/L (136-145)
[2022-12-04 00:16] LABS: ESTIMATED GFR 104 mL/min (>=60)
[2022-12-04 00:20] VITALS: BP 141/76; PULSE 71
[2022-12-04] MEDS ORDERED: Sodium Chloride 0.9% 500 ML IV SCH (00:30)
[2022-12-04] MEDS ORDERED: Lactated Ringers 500 ML IV ONE (00:46)
[2022-12-04 01:11] LABS: APPEARANCE,URINE CLEAR (CLEAR); BILIRUBIN,URINE NEGATIVE (NEGATIVE); COLOR,URINE LIGHT YELLOW (YELLOW); GLUCOSE,URINE NEGATIVE (NEGATIVE); KETONES,URINE NEGATIVE (NEGATIVE); LEUKOCYTE ESTERASE,URINE NEGATIVE (NEGATIVE); NITRITE,URINE NEGATIVE (NEGATIVE); OCCULT BLOOD,URINE NEGATIVE (NEGATIVE); PH,URINE 5.5 (5.0-9.0); PROTEIN,URINE NEGATIVE (NEGATIVE); UROBILINOGEN,URINE 0.2 mg/dL (0.2-1.0)
== END 2022-12-04 01:47 | disposition home or self-care (01) ==
LOC: DL.ED 23:34
DX: R55 Syncope and collapse (principal); F10.129 Alcohol abuse with intoxication, unspecified; E87.1 Hypo-osmolality and hyponatremia; I10 Essential (primary) hypertension; Z88.5 Allergy status to narcotic agent; Z88.8 Allergy status to other drugs, medicaments and biological substances; Z72.0 Tobacco use
CPT/HCPCS: 36415; 80053; 81003; 83735; 85025; 93005; 93010; 96360; 99284; J7120

== ENCOUNTER 2023-10-05 22:58 | Emergency (ER) | payer BC, OTHER ==
[2023-10-05 23:26] VITALS: BP 121/103; PULSE 71
== END 2023-10-06 00:53 | disposition home or self-care (01) ==
LOC: DL.ED 22:58
DX: S52.612A Displaced fracture of left ulna styloid process, initial encounter for closed fracture (principal); S52.502A Unspecified fracture of the lower end of left radius, initial encounter for closed fracture; I10 Essential (primary) hypertension; Z88.5 Allergy status to narcotic agent; Z88.8 Allergy status to other drugs, medicaments and biological substances; Z79.899 Other long term (current) drug therapy; W01.0XXA Fall on same level from slipping, tripping and stumbling without subsequent striking against object, initial encounter
CPT/HCPCS: 29125; 73110-LT; 99283; 99283-25

== ENCOUNTER 2023-12-18 21:31 | Emergency (ER) | payer OTHER ==
[2023-12-18 21:53] VITALS: BP 144/82; PULSE 77
[2023-12-18] MEDS: Lidocaine 5% 700 MG Patch TOP ONE (23:00)
[2023-12-18] MEDS: Acetaminophen 500 MG Tab PO ONE (23:00)
[2023-12-18] MEDS: Ketorolac 30 MG/ML SDV IM ONE (23:00)
== END 2023-12-18 23:59 | disposition home or self-care (01) ==
LOC: DL.ED 21:31
DX: R07.89 Other chest pain (principal); M25.532 Pain in left wrist; I10 Essential (primary) hypertension; Z79.899 Other long term (current) drug therapy; Z88.5 Allergy status to narcotic agent; Z88.8 Allergy status to other drugs, medicaments and biological substances
CPT/HCPCS: 71046; 73100; 93005; 93010; 96372; 99284; 99285; A9270; J1885